=== PATIENT | female | born 1995 | race African-American/Black ===

== ENCOUNTER 2023-01-16 19:42 | Emergency (ER) | payer OTHER ==
[2023-01-16 19:53] VITALS: TEMP 99.1
[2023-01-16] MEDS ORDERED: KETOROLAC 15 MG/ML 1 ML VIAL IM STA (20:09)
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
[2023-01-16] MEDS ORDERED: HYDROmorphone 0.5 MG/0.5 ML SYRINGE IM STA (21:02)
[2023-01-16] MEDS ORDERED: ACET/COD 300 MG/30 MG STARTER PACK 6 TAB BTL PO STA (21:03)
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
[2023-01-16 22:08] VITALS: BP 134/90; PULSE 90; RESP 16
== END 2023-01-16 21:30 | disposition home or self-care (01) ==
LOC: EC 19:42
DX: M79.662 Pain in left lower leg (principal); F12.90 Cannabis use, unspecified, uncomplicated; V89.2XXA Person injured in unspecified motor-vehicle accident, traffic, initial encounter; Y92.410 Unspecified street and highway as the place of occurrence of the external cause
CPT/HCPCS: 73502; 73590; 73562; 99284; 96372 ×2; J1885; J1170